=== PATIENT | male | born 1960 | race Caucasian/White ===

== ENCOUNTER 2025-08-24 09:00 | Emergency (ER) | payer OTHER, SELFPAY ==
[2025-08-24 09:09] VITALS: BP 190/110
[2025-08-24 09:27] LABS: Hematocrit 49.8 % (39.0-52.0); Hemoglobin 17.2 g/dL (13.0-18.0); Mean Corp Hgb Conc. 34.5 g/dL (33.0-37.0); Mean Corpuscular Volume 87.5 fL (80.0-94.0); Nucleated Red Blood Cells % 0 % (-); Platelet Count 260 10^3/uL (130-400); Red Cell Dist. Width 12.5 % (11.5-14.5)
[2025-08-24 09:43] LABS: ALT (SGPT) 30 U/L (0-50); AST (SGOT) 32 U/L (17-59); Albumin 4.8 g/dl (3.5-5.0); Alkaline Phosphatase 122 U/L (38-126); Blood Urea Nitrogen 19 mg/dl (9-20); Calcium 9.5 mg/dl (8.4-10.2); Carbon Dioxide 28 mmol/L (22-30); Chloride 107 mmol/L (98-107); Glucose 107 mg/dl (70-99); Potassium 5.0 mmol/L (3.5-5.1); Sodium 139 mmol/L (135-145); Total Protein 7.5 g/dl (6.3-8.2); eGFR > 60.00
[2025-08-24 09:45] LABS: Urine Character Clear (Clear)
[2025-08-24 10:50] LABS: Urine Red Blood Cell 0-2 /HPF (0-2); Urine Squamous Cell 0-2 /LPF (Few)
[2025-08-24 10:51] LABS: Urine White Cell 0-2 /HPF (0-5)
--- NOTE | 2025-08-24 11:08 | ED.GENMED ---
History of Present Illness
General
Chief Complaint: Male Genito-Urinary Symptoms
Source: patient
Exam Limitations: none
Time Seen by Provider: 08/24/25 10:41
Nursing documentation reviewed up to this point in time: agreed with
History of Present Illness
History of Present Illness:
65-year-old male with history of hypertension who presents to the ER for evaluation of lump in his left thigh. Patient reports that 4 days ago he noticed a bump on his left thigh/groin that has become a bit larger. He denies any trauma or injury
to the area although he did have a minor fall onto his knees last week. He is concerned that it is a lymph node and says that he recently had an elevated PSA on outpatient check through his urologist (Dr. Agarwal) and so he came to the ER for
assessment. He denies any dysuria, hematuria, change urinary frequency, denies any scrotal pain or swelling. No other acute complaints.
Review of Systems
Review of Systems
All Other Systems: ROS reviewed and negative except as documented in HPI and ROS
Constitutional: Denies fever
: Denies dysuria, frequency, flank pain or bleeding
Skin: Reports other (Painful lump in the left thigh/groin); Denies rash
Phy Exam
Physical Exam
Physical Exam:
General: Awake, alert, oriented x3; no acute distress
Head: Normocephalic, atraumatic
Eyes: Conjunctiva normal
Throat: Airway intact, handling secretions
Neck: Trachea midline, supple without meningismus
Lungs: Breathing comfortably no distress
Heart: Regular rate
Abd: Soft, non distended, nontender
Neuro: Grossly intact
Skin: Patient has approximately 4 cm lump in the left medial proximal thigh about 5 cm distal to the inguinal crease; no overlying erythema, warmth and not tender to the touch
Extremities: No edema in extremities, equal pulses in all extremities�specifically strong femoral and DP pulses bilaterally; no wounds or erythema on the legs bilaterally
Scores
Heart Failure Risk
Heart Failure Risk Score: Not Applicable
Heart Score for Chest Pain Patients
STEMI patient?: Not applicable
Withdrawal Assessment of Alcohol
Withdrawal Assessment Completed?: Not applicable
Course
Orders/Labs/Results
Orders:
Orders
08/24/25 09:18
Complete Blood Count/With Diff Urgent
Comprehensive Metabolic Panel Urgent
Urinalysis Reflex To Culture Urgent
Date Specimen was Collected: 08/24/25
Time Specimen was Collected: 09:15
Urine Microscopic Reflex Cult Urgent
08/24/25 09:19
US Groin (Imaging Only) LT Urgent
Comment:
Reason For Exam: left groin mass increasing in size
Abnormal Lab Results
08/24/25
09:18
Lymphocytes % 19.9 L %
(20.5-51.1)
Glucose 107 H mg/dl
(70-99)
Urine Albumin (Reflex) 1+ A
(Neg - Trace)
08/24/25 09:18
08/24/25 09:18
Vital Signs
Initial and Last Documented VS:
Initial Vital Signs
Temp Pulse Resp BP Pulse Ox
36.7 C 71 18 190/110 99
08/24/25 09:09 08/24/25 09:09 08/24/25 09:09 08/24/25 09:09 08/24/25 09:09
Last Documented Vital Signs
Temp Pulse Resp BP Pulse Ox
36.7 C 71 18 190/110 99
08/24/25 09:09 08/24/25 09:09 08/24/25 09:09 08/24/25 09:09 08/24/25 11:09
MDM/Problems Addressed
Differential Diagnosis Includes:
Lymphadenopathy, lipoma, seroma, abscess, hematoma
MDM/Problems Addressed:
65-year-old male presents for evaluation of bump in his left thigh. He was concerned that it was an enlarged lymph node especially given that he had recently elevated PSAs. Vitals and exam as above. He had labs done in triage including a CBC and
a CMP which showed no clinically significant abnormalities. His urinalysis is bland. Ultrasound of the area of concern showed relatively large fluid collection in the subcutaneous soft tissue of the thigh which could represent seroma, chronic
hematoma, abscess less likely. Given lack of fever, leukocytosis, erythema, warmth or tenderness in the area very low clinical suspicion that this represents an abscess. He did have a fall a little over a week ago and landed on his knees I wonder
if this may be a hematoma from this incident. At this point he is stable for discharge can follow along with his primary doctor as an outpatient. All questions answered.
*Radiology
Radiology exam reviewed: radiology read reviewed
*Pulse Oximetry
SaO2: 99
Oxygen Mode of Delivery: Room air
Patient hypoxic: no (99%)
*Critical Care Note
Total Time (30-74mins, 75-104mins- exclusive of procedures): Not Applicable
Data Reviewed
Review of Other/Old Records Reveals: Records
Source: patient
ED Attending Note
-
Portions of this chart may have been created with voice recognition software.� Occasional wrong word or��sound alike� substitutions may have occurred due to the inherent limitations of voice recognition software.
Discharge Plan
Departure
Patient Disposition: Home (Routine Discharge)
Date of Disposition: 08/24/25
Time of Disposition: 11:18
Patient with high blood pressure during this ER visit?: Yes
Discharge Problem:
Hematoma
Instructions: Hematoma
Referrals:
UNKNOWN - PT DOES,NOT KNOW [Family Provider]
Activity Restrictions/Additional Instructions:
Thank you for visiting the Emergency Department at [facility].
1. Please schedule a follow up appointment as directed. Call first thing tomorrow morning to make an appointment.
2. If indicated, please take your medications as instructed and indicated on discharge paperwork.
3. If any of your symptoms do not improve, or persist, or become more severe within 6-12 hours, please return to the emergency department for further care.
4. Please return to the emergency department if you develop a headache, neck pain/stiffness, fever greater than 100.4F, chest pain, shortness of breath, persistent nausea, vomiting, slurred speech, difficulty walking, numbness/tingling, weakness,
signs of infection or any other symptoms that are worrisome to you.
Please call [phone] if you have any questions.
Interventions
Interventions:
*Risk Screen - Suicide Last Done: 08/24/25 09:14
*General Assessment Last Done: 08/24/25 09:14
*Neglect/Abuse Screening Last Done: 08/24/25 09:14
*ED COVID-19 Vaccine History Last Done: 08/24/25 09:14
*ED Influenza Vaccine History Last Done: 08/24/25 09:14
Discharge Date and Time
Print Language: MALIAN
== END 2025-08-24 11:49 | disposition home or self-care (01) ==
LOC: EMR 09:00
PROVIDERS: Emergency Medicine; EMERGENCY PHYSICIAN Emergency Medicine
DX: S70.12XA Contusion of left thigh, initial encounter (principal); W19.XXXA Unspecified fall, initial encounter; I10 Essential (primary) hypertension
CPT/HCPCS: 99284; 76882; 80053; 81003; 81015; 85025